=== PATIENT | female | born 1995 | race Native Hawaiian/Other Pacific Islander ===

== ENCOUNTER 2017-04-21 12:29 | Outpatient (CLI) | payer OTHER | END 2017-04-21 12:44 | disposition short-term general hospital (02) | LOC: AMB 12:29 | DX: M54.2 Cervicalgia (principal); M25.512 Pain in left shoulder; M25.521 Pain in right elbow; M79.652 Pain in left thigh; M54.89 Other dorsalgia; R51 Headache; V48.0XXA Car driver injured in noncollision transport accident in nontraffic accident, initial encounter; Y92.488 Other paved roadways as the place of occurrence of the external cause | CPT/HCPCS: A0425; A0427 ==

== ENCOUNTER 2017-04-21 12:58 | Emergency (ER) | payer OTHER ==
[~2017-04-21] VITALS: Ht 180.3 cm; Wt 57.6 kg
[2017-04-21 12:45] VITALS: TEMP 98.7
[2017-04-21 14:52] VITALS: BP 137/66
== END 2017-04-21 14:55 | disposition home or self-care (01) ==
LOC: ED 12:58
DX: Z04.1 Encounter for examination and observation following transport accident (principal); V49.3XXA Car occupant (driver) (passenger) injured in unspecified nontraffic accident, initial encounter
CPT/HCPCS: 96374; 99284; J1885